=== PATIENT | male | born 2000 | race American Indian/Alaskan Native ===

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

== ENCOUNTER 2025-02-26 21:11 | Emergency (ER) | payer BC, OTHER ==
[2025-02-26 22:29] LABS: BASOPHILS PERCENT AUTO 0.3 % (0.0-1.0); EOSINOPHILS PERCENT AUTO 7.4 % (1.0-3.0); LYMPHOCYTES PERCENT AUTO 8.7 % (20.5-50.1); MONOCYTES PERCENT AUTO 7.2 % (2-8); NEUTROPHILS PERCENT AUTO 76.4 % (42.2-75.2); PLATELET COUNT,PLT 253 10^3/uL (150-450); RED BLOOD CELL COUNT 6.06 10^6/uL (4.6-6.2); WHITE BLOOD CELL COUNT,WBC 19.2 10^3/uL (5.0-10.0)
[2025-02-26 22:47] LABS: A/G RATIO 1.1; ALANINE AMINOTRANSFERASE,ALT 25.0 U/L (16-63); ASPARTATE AMNIOTRANSFERASE,AST 20.0 U/L (15-37); BILIRUBIN TOTAL 1.8 mg/dL (0.2-1.0); BLOOD UREA NITROGEN,BUN 9.0 mg/dL (7-18); CARBON DIOXIDE,CO2 29.0 mmol/L (21-32); CHLORIDE,CL 105.0 mmol/L (98-107); CREATININE 0.78 mg/dL (0.70-1.30); EST CRCL DRUG DOSING (CG) 133.24 mL/min; GLUCOSE RANDOM 85.0 mg/dL (70-99); POTASSIUM,K 3.7 mmol/L (3.5-5.1); PROTEIN TOTAL,TP 7.3 g/dL (6.4-8.2); SODIUM,NA 140.0 mmol/L (136-145)
[2025-02-26 22:48] LABS: ESTIMATED GFR 129.0 mL/min (>=60)
[2025-02-27] MEDS: Take Home: Albuterol/Ipratropium 3.0-0.5 MG/3 ML Neb Soln, 4 Neb Pack NEB ONE (00:45)
[2025-02-27] MEDS: Take Home: predniSONE 20 MG, 4 Tab Pack PO ONE (00:45)
== END 2025-02-27 00:56 | disposition home or self-care (01) ==
LOC: DL.ED 21:11
DX: J45.21 Mild intermittent asthma with (acute) exacerbation (principal); F17.210 Nicotine dependence, cigarettes, uncomplicated
CPT/HCPCS: 36415; 71046; 80053; 85025; 99285; A9270; J7512; J7620; 99284